=== PATIENT | female | born 1940 | race Caucasian/White ===

== ENCOUNTER 2017-02-09 06:57 | Day surgery (SDC) | payer MEDICARE, BC ==
[2017-02-09] MEDS ORDERED: LIDOCAINE 2% MDV (20MG/ML) 20ML VIAL IV ONE (06:58)
[2017-02-09] MEDS ORDERED: PROPOFOL 10 MG/ML VIAL IV ONE (06:58)
--- NOTE | 2017-02-12 12:21 | Operative Note ---
DATE OF SURGERY: 02/09/2017 REQUESTING PHYSICIAN: David Sneed DO SURGEON: Amara Cross MD POSTOPERATIVE DIAGNOSES: 1. Left-sided colonic diverticulosis. 2. A 2 cm, flat, polypoid lesion in the ascending colon that was removed by snare cautery with hemoclip application x 2. 3. Two 5-6 mm sessile polyps in the rectum that were removed by snare cautery. OPERATION: COLONOSCOPY and exam. REASON FOR PROCEDURE: This is an 86-year-old female with average risk for colorectal cancer who presented for screening colonoscopy. SEDATION: Sedation as per anesthesia. Pulse oximetry was monitored throughout the duration of the procedure to maintain O2 saturation of 90% or greater. Supplemental oxygen was administered via nasal cannula. Cardiac and vital signs were monitored throughout the duration of the procedure and they were stable. PROCEDURE: Description of the procedure of colonoscopy, risks, and alternatives to the procedure including the risk of bleeding and perforation among others were explained to the patient who voiced understanding and agreed to have the procedure done. A physical examination was performed and the patient was found stable for sedation. The patient was then placed in the left lateral position and sedation was initiated. Digital rectal exam was performed and showed small external hemorrhoids with no palpable rectal masses. A lubricated Olympus PCF-180AL colonoscope was then inserted into the rectum under direct visualization and was advanced to the cecum without difficulty. The ileocecal valve and appendiceal orifice were identified and photographed. The colonic mucosa was carefully examined upon insertion of the colonoscope. There were scattered diverticula noted in the sigmoid and descending colon. In the ascending colon was a 2 cm flat polypoid lesion that was noted and was removed by snare cautery. Two hemoclips were used to close the wound. The colonoscope was then withdrawn while carefully examining the colonic mucosal surfaces. No other lesions were noted in the cecum, the rest of the ascending colon, transverse colon, descending colon or sigmoid colon. In the rectum, however, were two 5-6 mm sessile polyps that were noted and were removed by snare cautery. The colonoscope was then withdrawn further into the rectum, and upon retroflexion, there were no other lesions noted. The colonoscope was then withdrawn and the procedure was terminated. The patient tolerated the procedure well without any complications. The patient remained with stable vital signs and was sent to the recovery room. PLAN AND RECOMMENDATIONS: 1. The patient is to be on a low-acid diet for 2 weeks and thereafter to be on a high-fiber diet. 2. She is to avoid any aspirin or any aspirin-containing medications. 3. The patient is to have repeat colonoscopy in 3 or 5 years or never. Thank you for allowing me to participate in the care of this patient. CC: DO GARTH Mcdowell
== END 2017-02-09 09:10 | disposition home or self-care (01) ==
LOC: HOP 06:57
PROVIDERS: ATTEND Internal Medicine Gastroenterology
DX: Z12.11 Encounter for screening for malignant neoplasm of colon (principal); D12.2 Benign neoplasm of ascending colon; K62.1 Rectal polyp; K57.30 Diverticulosis of large intestine without perforation or abscess without bleeding; I10 Essential (primary) hypertension

== ENCOUNTER 2018-03-15 12:13 | Observation (INO) | payer MEDICARE ==
[2018-03-15] MEDS ORDERED: Diph,Pert(Acell),Tet Vac 0.5 ML SYR IM ONE (12:42)
--- NOTE | 2018-03-15 12:45 | Emergency Department Record ---
History of Present Illness - General Chief Complaint: Fall Injury Stated Complaint: FALL Time Seen by Provider: 03/15/18 12:32 Source: Patient, Family Mode of Arrival: EMS Limitations: No limitations - History of Present Illness Initial Comments: The patient is here due to falling about an hour ago at home. She finished taking a shower and then was walking to the bedroom and began to feel dizzy and lightheaded. She then fell forward striking her face on the floor. She then immediately began talking to her spouse who witnessed the event. Since she has had facial pain but denies any WATKINS, CP, SOB, neck pain or visual changes. The patient did have a 3rd BP medicine started about a week ago due to HTN. She did see her PCP yesterday who was pleased with her blood pressure. The patient's spouse states her BP has been running low at times at home though. MD Complaint: Fall Onset/Timin -: Hour(s) Fall From: Standing When Fall Occurred: Just prior to arrival Fall Witnessed: Yes, by family Place Fall Occurred: Home Loss of Consciousness: Yes Prolonged Down Time?: No Symptoms Prior to Fall: Dizziness Location: Head Severity: Mild Severity scale (1-10): 5 - [place] Coma Scale Eye Response: (4) Open spontaneously Motor Response: (6) Obeys commands Verbal Response: (5) Oriented [place] Total: 15 - Related Data Home Medications Medication Instructions Recorded Confirmed Last Taken Alendronate Sodium 70 mg PO 03/15/18 Unknown Amlodipine Besylate 5 mg PO 03/15/18 03/15/18 08:00 Simvastatin [Zocor] 10 mg PO 03/15/18 03/15/18 08:00 Allergies Allergy/AdvReac Type Severity Reaction Status Date / Time No Known Drug Allergies Allergy Verified 03/15/18 12:31 Travel Screening - Travel/Exposure Within Last 30 Days Have you traveled within the last 30 days?: No Review of Systems Constitutional: Denies: Chills, Fever Eyes: Denies: Eye discharge ENT: Denies: Congestion Respiratory: Denies: Dyspnea Cardiovascular: Denies: Arrhythmia, Chest pain Endocrine: Denies: Fatigue Gastrointestinal: Denies: Nausea Genitourinary: Denies: Dysuria Musculoskeletal: Denies: Arthralgia Skin: Denies: Bruising Past Medical History - SOCIAL HISTORY Smoking Status: Former smoker Alcohol Use: None Drug Use: None - RESPIRATORY Hx Respiratory Disorders: No - CARDIOVASCULAR Hx Cardio Disorders: Yes Hx Hypertension: Yes - NEURO Hx Neuro Disorders: No - GI Hx GI Disorders: No Hx Abdominal Pain: Yes (llq a few days ago) - Hx Genitourinary Disorders: No - ENDOCRINE Hx Endocrine Disorders: No - MUSCULOSKELETAL Hx Musculoskeletal Disorders: No - PSYCH Hx Psych Problems: Yes Hx Behavior Problems: Yes (obsessive compulsive disorder) - HEMATOLOGY/ONCOLOGY Hx Hematology/Oncology Disorders: No Family Medical History Any Significant Family History?: Yes Hx Alcohol Use: Brother/Sister Hx Cancer: Brother/Sister Hx Dementia: Mother Hx Heart Disease: Mother Hx HTN: Mother Hx Resp Disorders: Brother/Sister Hx Stroke: Mother Physical Exam - General General Appearance: Alert, Oriented x3, Cooperative, No acute distress - Head Head exam: Atraumatic, Normocephalic, Normal inspection - Eye Eye exam: Normal appearance, PERRL, EOMI - ENT ENT exam: negative: Normal exam Nasal Exam: negative: Normal inspection (There is a very minor laceration to the L nostril. The nasal area is tender and swollen. There is no septal hematoma.) Teeth exam: Normal inspection Throat exam: Normal inspection, Other (The L anterior mandible is mildly tender but with no malloclusion or significant swelling.). negative: Tonsillar erythema, Tonsillar exudate - Neck Neck exam: Normal inspection, Full ROM. negative: Lymphadenopathy, Tenderness - Respiratory Respiratory exam: Normal lung sounds bilaterally. negative: Respiratory distress - Cardiovascular Cardiovascular Exam: Regular rate, Normal rhythm, Normal heart sounds - GI/Abdominal GI/Abdominal exam: Soft, Normal bowel sounds. negative: Tenderness - Extremities Extremities exam: Normal inspection, Full ROM, Normal capillary refill. negative: Tenderness - Neurological Neurological exam: Alert, Normal gait, Oriented X3. negative: Abnormal gait, Altered, Motor sensory deficit - Psychiatric Psychiatric exam: negative: Anxious - Skin Skin exam: negative: Rash Course Vital Signs 03/15/18 12:26 Temperature 97.5 F L Pulse Rate 75 Respiratory 18 Rate Blood Pressure 118/92 Pulse Ox 97 - Reevaluation(s) Reevaluation #1: The patient is doing better at this time and is resting comfortably. She does have a mild WATKINS but denies any new complaints. I did explain to her that due to the issues with her passing out and her nonspecific changes on her EKG the safest plan would be to admit her to the hospital overnight. The patient did agree to the plan. I also did consult with Dr. Sneed her PCP and also Gianna Sommers ([employer]) who did accept her admission. 03/15/18 15:03 Reevaluation #2: The patient did have a 2nd EKG done that was not significantly different from the first. 03/15/18 15:06 Medical Decision Making - Data Complexity MDM Data: Labs Ordered and/or Reviewed, X-Ray Ordered and/or Reviewed, EKG Ordered and/or Reviewed - Lab Data Result diagrams: 03/15/18 11:50 03/15/18 11:50 - EKG Data -: EKG Interpreted by Me EKG: Abnormal EKG (Prolonged QT with abnormal lateral T wave changes. No old EKG for comparison. ) - Radiology Data Radiology results: Report reviewed (Head CT: Neg for acute intracranial abnormalities. Pos nasal bone fx with L max air fluid level with no fx.) Disposition Disposition: Admit Clinical Impression: Syncope Qualifiers: Syncope type: unspecified Qualified Code(s): R55 - Syncope and collapse Disposition: Still a Patient at [facility] Decision to Admit: Admit from ER Decision to Admit Date: 03/15/18 Decision to Admit Time: 15:06 Accepting Physician: Bianca Gayle Discussed w/Accepting Physician: 15:07 Condition: (2) Stable Forms: Patient Portal Access Time of Disposition: 15:07 Quality - Quality Measures Quality Measures: N/A - Blood Pressure Screening View Details: Yes Does Patient Have Any of the Following: Active Dx of HTN Blood Pressure Classification: Hypertensive Reading Systolic Measurement: 118 Diastolic Measurement: 92 Screening for High Blood Pressure: Patient Exclusion, Hx of HTN [[id number]]
[2018-03-15 12:51] LABS: BASO % 0.3 % (0-6); EOS % 2.5 % (0-6); GRAN % 64.4 % (47-80); HEMATOCRIT 51.3 % (35.0-47.0); HEMOGLOBIN 16.9 gm/dl (11.6-16.0); LYMPH % 22.8 % (16-45); MEAN CELL VOLUME 93.6 fl (81-97); MEAN CORPUSCULAR HEMOGLOBIN 30.8 pg (27-33); MEAN CORPUSCULAR HGB CONC 32.9 g/dl (32-36); MEAN PLATELET VOLUME 9.3 fl (7.4-10.4); PLATELET COUNT 318 K/uL (130-400); RED BLOOD COUNT 5.48 M/uL (3.80-5.40); RED CELL DISTRIBUTION WIDTH 13.2 % (11.5-14.5); WHITE BLOOD COUNT W/O DIFF 8.7 K/uL (4.2-12.2)
[2018-03-15 13:10] LABS: BLOOD UREA NITROGEN 14 mg/dL (8-23); CREATININE 0.9 mg/dL (0.5-0.9); EST GLOMERULAR FILTRATION RATE > 60 mL/min; PARTIAL THROMBOPLASTIN TIME 25.9 SECONDS (24.5-39.1); PROTHROMBIN TIME (PATIENT) 10.2 SECONDS (9.5-12.1)
[2018-03-15 13:11] LABS: TOTAL PROTEIN 8.3 g/dL (6.6-8.7)
[2018-03-15 13:13] LABS: GLUCOSE,RANDOM 92 mg/dL (74-109)
[2018-03-15 13:15] LABS: ALB/GLOB RATIO 1.3 (1.1-1.8); ALBUMIN 4.7 g/dL (4.0-5.0); ALKALINE PHOSPHATASE 75 U/L (45-87); ALT/SGPT 13 U/L (<33); AST/SGOT 15 U/L (10.0-35.0); CREATINE PHOSPHOKINASE 65 U/L (26-192)
[2018-03-15 13:18] LABS: CKMB 2.7 ng/mL (<3.77)
[2018-03-15] MEDS ORDERED: ACETAMINOPHEN 325 MG TAB PO ONE (14:02)
--- NOTE | 2018-03-15 14:40 | CT SCAN REPORT ---
EXAM: CT SCAN OF THE BRAIN WITHOUT CONTRAST HISTORY: SYNCOPE AND FALL. LOSS OF CONSCIOUSNESS. ABRASION TO THE NOSE AND CHIN. TECHNIQUE: Standard CT imaging of the brain was performed in the axial plane without contrast. Additional coronal and sagittal reformatted images were also performed. Comparison: None. Encounter: Initial. FINDINGS: There is moderate generalized atrophy. The ventricles and subarachnoid spaces are otherwise normal. An old lacunar infarct is present within the right caudate nucleus. There is no mass, mass effect, intracranial hemorrhage, visible acute infarct, or skull fracture. The orbits are normal in appearance. There are subtle nondepressed nasal bone fractures with overlying soft tissue swelling. An air fluid level is present within the left maxillary sinus with no visible associated fracture. A small mucous retention cyst is present at the floor of the right maxillary sinus. There is minor mucosal thickening within the frontal and ethmoid sinuses. The mastoid air cells are clear. IMPRESSION: 1. NO ACUTE INTRACRANIAL ABNORMALITY. 2. 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 3. MODERATE ATROPHY. 4. NONDEPRESSED NASAL BONE FRACTURE. 5. AIR FLUID LEVEL WITHIN THE LEFT MAXILLARY SINUS. JOB NUMBER: [id number] [facility]
--- NOTE | 2018-03-15 14:46 | CT SCAN REPORT ---
EXAM: CT SCAN OF THE CERVICAL SPINE WITHOUT CONTRAST HISTORY: SYNCOPAL EPISODE AND FALL. LOSS OF CONSCIOUSNESS. HEAD INJURY. ABRASION TO THE NOSE AND CHIN. TECHNIQUE: Standard CT imaging of the cervical spine was performed in the axial plane without contrast. Additional coronal and sagittal reformatted images were also performed. Comparison: None. Encounter: Initial. FINDINGS: There is straightening of the cervical lordosis. 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 There is severe disk space narrowing of the C4 through the T1 levels. There is minor anterolisthesis of C4 on C5 and C7 on T1, both of which appear degenerative in nature secondary to bilateral facet arthropathy. The craniocervical junction is unremarkable. There is no visible acute fracture, subluxation, or prevertebral soft tissue swelling. There is borderline to mild central canal stenosis at the C4 through the C7 levels. There is severe left and moderate right neural foraminal narrowing at the C4-C5 level. Mild to moderate bilateral neural foraminal narrowing is present at the C5-C6 level. Atherosclerotic calcifications are present within the carotid arteries bilaterally. The neck soft tissues are otherwise normal. The lung apices appear clear. IMPRESSION: 1. NO ACUTE CERVICAL SPINE PATHOLOGY. 2. EXTENSIVE MULTILEVEL DEGENERATIVE DISK DISEASE AND FACET ARTHROPATHY. 3. 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 JOB NUMBER: [id number] [facility]
[2018-03-15] MEDS ORDERED: AMOXICILLIN/POTASSIUM CLAV 875MG/125MG TABLET PO ONE (15:03)
[2018-03-15] MEDS ORDERED: 0.9 % SODIUM CHLORIDE 1000ML 1,000 ML IV PRN (15:26)
[2018-03-15] MEDS ORDERED: ACETAMINOPHEN 325 MG TAB PO PRN (15:26)
[2018-03-15] MEDS: AMOXICILLIN/POTASSIUM CLAV 875MG/125MG TABLET PO SCH (21:17)
[2018-03-15] MEDS: CLONIDINE HCL 0.1 MG TABLET PO SCH (21:17)
[2018-03-15] MEDS ORDERED: CLONIDINE HCL 0.1 MG TABLET PO SCH (22:00)
[2018-03-15] MEDS ORDERED: SIMVASTATIN 10MG TABLET PO SCH (22:00)
[2018-03-16] MEDS ORDERED: CLONIDINE HCL 0.1 MG TABLET PO ONE (03:11)
--- NOTE | 2018-03-16 09:15 | History & Physical ---
History of Present Illness - Date of Service Date of Service for History & Physical: 03/18/18 - History of Present Illness Admitting Diagnosis: 1. Acute Syncope History of Present Illness: 78 yo female admitted for witnessed syncope and mild facial trauma r/t to fall forward. Pt was recently placed on HCTZ 12.5mg by PCP, seen in office and reported BPs 100/70s on meds but in office was 130/80s in office (reported by Dr Sneed during consult via phone). Syncope episode was noted 03/15/18, witnessed at home. 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 Had a BM, reported having to push hard, stood quickly and walked into her shared bedroom. Pt reports feeling dizzy and then woke when she hit the carpeted bedroom floor. Was a&ox3 immediately after hitting the ground per pt. Brought to er via EMS. PMH HTN 03/15/18 pt arrived to EMS, facial trauma noted s/p syncope and fall. Was a&ox3 upon arrival, presented with and confirmed that pt fell forward on carpet and was awake and alert immediately. CT head and Neck negative for acute process, nasal bone fracture with air fluid left maxillary sinus. EKG shows prolonged QTc but NS with T wave depressions of unknown age. Pt denied CP, SOB, or JOSE with Dizziness resolving before arrival to ER. BP 118/92, Hr 75, RR 18, 97% RA 97.5F WBC 8.7, Hgb 16.9, Hct 51.3, Plt 318 PT 10.2, INR 1, APTT 25.9 Na 143, K 3.6, Cl 99, COs 30, Anion gap 14, BUN 14, Cr 0.9, GFR >60, glucose 92 , LFTs wnl Trop <0.010 x3, CKMB 2.7, CK 65 Pt given IVF @ 45, tylenol 650mg, and started on Augmentin for nasal fx with sinus involvement. HCTZ d/c'd, tdap given, placed on tele cont. 03/16/18 Pt resting comfortable, pain controlled with tylenol. Bruising noted to face, left worse than right. Pt has normal ROM, able to open and close jaw with no difficulties. Neuro exam normal, lungs CTA, heart NS RRR, no murmur noted. Tele reports NSR with no reported ectopy. Clonidine was decreased from 0.2mg BID to 0.1mg BID and BP was elevated in the early AM. Pt to continue clonidine 0.2mg BID and norvasc 5mg qd. Holding HCTZ 12.5mg until seen by PCP. Pt denies CP, SOB, dizziness, or any sensation of racing or skipping beats. Case consulted with Dr Sneed as pt has neg trop., positive h/o of potential vasovagal stimulation but has not previous ECHO. PCP will see pt 10AM sunday for f/u, req 24hr holter to D/C today. EKG shows no acute process other than prolonger QTc with no previous EKG noted. Pt does wish to go home, POC reviewed with pt and continues to agree to d/c. Pt educated on risk of d/c without inpt ECHO that would not be completed until sunday. Pt wishes to have ECHO outpt and PCP does agree to this POC. . PCP Nedra Travel Screening - Travel/Exposure Within Last 30 Days Have you traveled within the last 30 days?: No - Travel/Exposure Within Last Year Have you traveled outside the [place] in the last year?: No - Additonal Travel Details Have you been exposed to anyone with a communicable illness?: No - Travel Symptoms Symptom Screening: None Review of Systems Constitutional: Denies: Chills, Fever Eyes: Denies: Eye discharge ENT: Denies: Congestion Respiratory: Denies: Dyspnea Cardiovascular: Denies: Arrhythmia, Chest pain Endocrine: Denies: Fatigue Gastrointestinal: Denies: Nausea Genitourinary: Denies: Dysuria Musculoskeletal: Denies: Arthralgia Skin: Denies: Bruising Past Medical History - SOCIAL HISTORY Smoking Status: Former smoker Alcohol Use: None Drug Use: None - RESPIRATORY Hx Respiratory Disorders: No - CARDIOVASCULAR Hx Cardio Disorders: Yes Hx Hypertension: Yes - NEURO Hx Neuro Disorders: No - GI Hx GI Disorders: No Hx Abdominal Pain: Yes (llq a few days ago) - Hx Genitourinary Disorders: No - ENDOCRINE Hx Endocrine Disorders: No - MUSCULOSKELETAL Hx Musculoskeletal Disorders: No - PSYCH Hx Psych Problems: Yes Hx Behavior Problems: Yes (obsessive compulsive disorder) - HEMATOLOGY/ONCOLOGY Hx Hematology/Oncology Disorders: No Family Medical History Any Significant Family History?: Yes Hx Alcohol Use: Brother/Sister Hx Cancer: Brother/Sister Hx Dementia: Mother Hx Heart Disease: Mother Hx HTN: Mother Hx Resp Disorders: Brother/Sister Hx Stroke: Mother H&P Meds/Allergies - Allergies Allergies: Allergies Allergy/AdvReac Type Severity Reaction Status Date / Time No Known Drug Allergies Allergy Verified 03/15/18 12:31 - Home Medications Home Medications Medication Instructions Recorded Confirmed Last Taken Alendronate Sodium 70 mg PO WEEKLY 03/15/18 03/15/18 Unknown Amlodipine Besylate 5 mg PO DAILY 03/15/18 03/15/18 03/15/18 08:00 Simvastatin [Zocor] 10 mg PO QHS 03/15/18 03/15/18 03/15/18 08:00 Previous Rx's Medication Instructions Recorded Acetaminophen [Tylenol 325Mg] 650 mg PO Q6H PRN tablet 03/16/18 Amoxicillin/Potassium Clav 1 each PO BID 9 Days #18 tablet 03/16/18 [Augmentin 875Mg/125Mg] Magnesium 200 mg PO DAILY 7 Days #7 tablet 03/16/18 - Active Medications Active Medications: Current Medications Acetaminophen (Tylenol 325mg) 650 mg PO Q6H PRN PRN Reason: PAIN - MILD(1-4)/FEVER Last Admin: 03/16/18 02:23 Dose: 650 mg Amlodipine Besylate (Norvasc) 5 mg PO DAILY [facility] Amoxicillin/Clavulanate Potassium (Augmentin 875 Tab) 1 each PO BID [facility] Last Admin: 03/15/18 21:17 Dose: 1 each Clonidine HCl (Catapres) 0.1 mg PO BID [facility] Last Admin: 03/15/18 21:17 Dose: 0.1 mg Sodium Chloride () 1,000 mls @ 42 mls/hr IV .[id number] PRN PRN Reason: LARGE VOLUME IV Last Admin: 03/15/18 19:24 Dose: 42 mls/hr Non-Formulary Medication (Alendronate Sodium [Alendronate Sodium]) 70 mg PO WEEKLY [facility] Sertraline HCl (Zoloft) 25 mg PO DAILY [facility] Simvastatin (Zocor) 10 mg PO QHS [facility] Last Admin: 03/15/18 21:17 Dose: 10 mg Physical Exam - Vital Signs Vital Signs: Vital Signs - Last 24 Hrs Temp Pulse Pulse Pulse Resp BP BP 03/16/18 05:00 77 17 140/67 03/16/18 01:00 98.1 F 84 17 196/92 03/15/18 21:26 98.5 F 87 16 175/87 03/15/18 21:00 78 87 16 03/15/18 17:26 98.4 F 78 20 156/78 03/15/18 16:08 80 16 03/15/18 15:26 98.2 F 75 16 166/80 03/15/18 15:02 77 171/93 03/15/18 14:02 70 167/90 03/15/18 12:26 97.5 F L 75 18 118/92 Pulse Ox 03/16/18 05:00 93 L 03/16/18 01:00 94 L 03/15/18 21:26 97 03/15/18 21:00 03/15/18 17:26 03/15/18 16:08 03/15/18 15:26 97 03/15/18 15:02 03/15/18 14:02 03/15/18 12:26 97 - General General Appearance: Alert, Oriented x3, Cooperative, No acute distress Limitations: No limitations - Head Head exam: Normocephalic. negative: Atraumatic, Normal inspection Head exam detail: Contusion, Andino's sign, General tenderness, Hematoma, [place] eyes - Eye Eye exam: Normal appearance, PERRL, EOMI - ENT ENT exam: negative: Normal exam Nasal Exam: Dried blood, Sinus tenderness. negative: Normal inspection (There is a very minor laceration to the L nostril. The nasal area is tender and swollen. There is no septal hematoma.) Mouth exam: Normal external inspection, Tongue normal Teeth exam: Other (prostetics) Throat exam: Normal inspection, Other (The L anterior mandible is mildly tender but with no malloclusion or significant swelling.). negative: Tonsillar erythema, Tonsillar exudate - Neck Neck exam: Normal inspection, Full ROM. negative: Lymphadenopathy, Tenderness - Respiratory Respiratory exam: Normal lung sounds bilaterally. negative: Respiratory distress - Cardiovascular Cardiovascular Exam: Regular rate, Normal rhythm, Normal heart sounds Peripheral Pulses: 2+: Radial (R), Radial (L), Dorsalis Pedis (R), Dorsalis Pedis (L) - GI/Abdominal GI/Abdominal exam: Soft, Normal bowel sounds. negative: Tenderness - Rectal Rectal exam: Deferred - exam: Deferred - Extremities Extremities exam: Normal inspection, Full ROM, Normal capillary refill. negative: Pedal edema, Tenderness - Back Back exam: Reports: Normal inspection - Neurological Neurological exam: Alert, CN II-XII intact, Normal gait, Oriented X3. negative : Abnormal gait, Altered, Motor sensory deficit - Psychiatric Psychiatric exam: Normal affect, Normal mood. negative: Anxious - Skin Skin exam: negative: Rash Results - Labs Result Diagrams: 03/15/18 11:50 03/15/18 11:50 Labs Last 24 Hours: Laboratory Results - last 24 hr 03/15/18 03/15/18 03/15/18 11:50 11:50 11:50 WBC 8.7 RBC 5.48 H Hgb 16.9 H Hct 51.3 H MCV 93.6 MCH 30.8 MCHC 32.9 RDW 13.2 Plt Count 318 MPV 9.3 Gran % 64.4 Lymphocytes % 22.8 Monocytes % 10.0 H Eosinophils % 2.5 Basophils % 0.3 PT 10.2 INR 1.0 APTT 25.9 Sodium 143 Potassium 3.6 Chloride 99 Carbon Dioxide 30.0 H Anion Gap 14.0 BUN 14 Creatinine 0.9 Estimated GFR > 60 Random Glucose 92 Calcium 10.4 H Total Bilirubin 0.50 AST 15 ALT 13 Alkaline Phosphatase 75 Creatine Kinase 65 CK-MB (CK-2) 2.7 Troponin T < 0.010 Total Protein 8.3 Albumin 4.7 Globulin 3.6 Albumin/Globulin Ratio 1.3 03/15/18 03/16/18 19:14 03:00 WBC RBC Hgb Hct MCV MCH MCHC RDW Plt Count MPV Gran % Lymphocytes % Monocytes % Eosinophils % Basophils % PT INR APTT Sodium Potassium Chloride Carbon Dioxide Anion Gap BUN Creatinine Estimated GFR Random Glucose Calcium Total Bilirubin AST ALT Alkaline Phosphatase Creatine Kinase CK-MB (CK-2) Troponin T < 0.010 < 0.010 Total Protein Albumin Globulin Albumin/Globulin Ratio - Imaging and Cardiology CT scan - head Status: Report reviewed VTE H&P Assessment - Risk for VTE Risk for VTE: Yes Risk Level: Moderate Risk Assessment Date: 03/16/18 Risk Assessment Time: :19 VTE Orders Placed or Will Be Placed: No VTE Reason for No Prophylaxis: Complication of Medical Care (recent fall) Plan - Detailed Diagnosis and Plan (1) Syncope Status: Acute Qualifiers: Syncope type: unspecified Qualified Code(s): R55 - Syncope and collapse Base Code: R55 - SYNCOPE AND COLLAPSE Comment: 03/16/18 -pt denies dizziness, tele NSR no ectopy reported -trop x3 neg -BP elevated during admission, holding HCTZ but continue clonidine -EKG ER shows prolonged QTc 513, repeat this AM shows 532, mag serum 1.5 -2gm Mag IVPB given, repeat EKG QTc 460, d/c home with mag supplements (2) DVT prophylaxis Status: Acute Base Code: [id number] - Comment: 03/16/18 -no lovenox r/t recent fall, facial trauma (3) Full code status Status: Acute Base Code: Z78.9 - OTHER SPECIFIED HEALTH STATUS Comment: full code
[2018-03-16] MEDS ORDERED: AMLODIPINE BESYLATE 5MG TAB PO SCH (10:00)
[2018-03-16] MEDS ORDERED: SERTRALINE HCL 50 MG TABLET PO SCH (10:00)
[2018-03-16] MEDS: AMOXICILLIN/POTASSIUM CLAV 875MG/125MG TABLET PO SCH (10:26)
[2018-03-16] MEDS: CLONIDINE HCL 0.1 MG TABLET PO SCH (10:27)
[2018-03-16] MEDS ORDERED: MAGNESIUM SULFATE 16 MEQ in 0.9 % SODIUM CHLORIDE 100ML 100 ML IV ONE (11:53)
--- NOTE | 2018-03-16 14:40 | Physician Progress Note ---
Subjective - Date Date of Physician Progress Note: 03/16/18 Objective - Vital Signs Vital Signs: Vital Signs - Last 24 Hrs Temp Pulse Pulse Resp BP Pulse Ox 03/16/18 13:00 98.3 F 74 16 147/80 95 03/16/18 09:00 97.9 F 73 18 167/84 93 L 03/16/18 05:00 77 17 140/67 93 L 03/16/18 01:00 98.1 F 84 17 196/92 94 L 03/15/18 21:26 98.5 F 87 16 175/87 97 03/15/18 21:00 78 87 16 03/15/18 17:26 98.4 F 78 20 156/78 03/15/18 16:08 80 16 03/15/18 15:26 98.2 F 75 16 166/80 97 03/15/18 15:02 77 171/93 - General General Appearance: Alert, Oriented x3, Cooperative, No acute distress Limitations: No limitations - Head Head exam: Normocephalic. negative: Atraumatic, Normal inspection Head exam detail: Contusion, Andino's sign, General tenderness, Hematoma, [place] eyes - Eye Eye exam: Normal appearance, PERRL, EOMI - ENT ENT exam: negative: Normal exam Nasal Exam: Dried blood, Sinus tenderness. negative: Normal inspection (There is a very minor laceration to the L nostril. The nasal area is tender and swollen. There is no septal hematoma.) Mouth exam: Normal external inspection, Tongue normal Teeth exam: Other (prostetics) Throat exam: Normal inspection, Other (The L anterior mandible is mildly tender but with no malloclusion or significant swelling.). negative: Tonsillar erythema, Tonsillar exudate - Neck Neck exam: Normal inspection, Full ROM. negative: Lymphadenopathy, Tenderness - Respiratory Respiratory exam: Normal lung sounds bilaterally. negative: Respiratory distress - Cardiovascular Cardiovascular Exam: Regular rate, Normal rhythm, Normal heart sounds Peripheral Pulses: 2+: Radial (R), Radial (L), Dorsalis Pedis (R), Dorsalis Pedis (L) - GI/Abdominal GI/Abdominal exam: Soft, Normal bowel sounds. negative: Tenderness - Rectal Rectal exam: Deferred - exam: Deferred - Extremities Extremities exam: Normal inspection, Full ROM, Normal capillary refill. negative: Pedal edema, Tenderness - Back Back exam: Reports: Normal inspection - Neurological Neurological exam: Alert, CN II-XII intact, Normal gait, Oriented X3. negative : Abnormal gait, Altered, Motor sensory deficit - Psychiatric Psychiatric exam: Normal affect, Normal mood. negative: Anxious - Skin Skin exam: negative: Rash Assessment and Plan - Assessment and Plan (1) Syncope Current Visit: Yes Status: Acute Qualifiers: Syncope type: unspecified Qualified Code(s): R55 - Syncope and collapse Base Code: R55 - SYNCOPE AND COLLAPSE Comment: 03/16/18 -pt denies dizziness, tele NSR no ectopy reported -trop x3 neg -BP elevated during admission, holding HCTZ but continue clonidine -EKG ER shows prolonged QTc 513, repeat this AM shows 532, mag serum pending (2) DVT prophylaxis Current Visit: Yes Status: Acute Base Code: [id number] - (3) Full code status Current Visit: Yes Status: Acute Base Code: Z78.9 - OTHER SPECIFIED HEALTH STATUS Results - Labs Result Diagrams: 03/15/18 11:50 03/15/18 11:50 Labs Last 24 Hours: Laboratory Results - last 24 hr 03/15/18 03/16/18 03/16/18 19:14 03:00 03:00 Magnesium 1.5 L Troponin T < 0.010 < 0.010 DVT/PE Assessment - Risk for VTE Risk for VTE: No Risk Level: Moderate Risk Assessment Date: 03/16/18 Risk Assessment Time: 11:19 VTE Reason for No Prophylaxis: Complication of Medical Care (recent fall) - Active Medicaitons Current Medications: Current Medications Acetaminophen (Tylenol 325mg) 650 mg PO Q6H PRN PRN Reason: PAIN - MILD(1-4)/FEVER Last Admin: 03/16/18 02:23 Dose: 650 mg Amlodipine Besylate (Norvasc) 5 mg PO DAILY [facility] Last Admin: 03/16/18 10:26 Dose: 5 mg Amoxicillin/Clavulanate Potassium (Augmentin 875 Tab) 1 each PO BID [facility] Last Admin: 03/16/18 10:26 Dose: 1 each Clonidine HCl (Catapres) 0.1 mg PO BID [facility] Last Admin: 03/16/18 10:27 Dose: 0.1 mg Sodium Chloride () 1,000 mls @ 42 mls/hr IV .[id number] PRN PRN Reason: LARGE VOLUME IV Last Admin: 03/15/18 19:24 Dose: 42 mls/hr Non-Formulary Medication (Alendronate Sodium [Alendronate Sodium]) 70 mg PO WEEKLY [facility] Sertraline HCl (Zoloft) 25 mg PO DAILY [facility] Last Admin: 03/16/18 10:27 Dose: 25 mg Simvastatin (Zocor) 10 mg PO QHS [facility] Last Admin: 03/15/18 21:17 Dose: 10 mg AMI Plan - Labs Result Diagrams: 03/15/18 11:50 03/15/18 11:50
--- NOTE | 2018-03-16 16:04 | Discharge Summary ---
Providers Discharge Summary Date: 03/16/18 Date of admission: 03/15/18 15:24 Expected Date of Discharge: 03/16/18 Attending physician: YUVAL QUINTEROS Primary care physician: Dr Sneed Physical Exam - Vital Signs Vital Signs: Vital Signs - Last 24 Hrs Temp Pulse Pulse Resp BP Pulse Ox 03/16/18 13:00 98.3 F 74 16 147/80 95 03/16/18 09:00 97.9 F 73 18 167/84 93 L 03/16/18 05:00 77 17 140/67 93 L 03/16/18 01:00 98.1 F 84 17 196/92 94 L 03/15/18 21:26 98.5 F 87 16 175/87 97 03/15/18 21:00 78 87 16 03/15/18 17:26 98.4 F 78 20 156/78 03/15/18 16:08 80 16 - General General Appearance: Alert, Oriented x3, Cooperative, No acute distress Limitations: No limitations - Head Head exam: Normocephalic. negative: Atraumatic, Normal inspection Head exam detail: Contusion, Andino's sign, General tenderness, Hematoma, [place] eyes - Eye Eye exam: Normal appearance, PERRL, EOMI - ENT ENT exam: negative: Normal exam Nasal Exam: Dried blood, Sinus tenderness. negative: Normal inspection (There is a very minor laceration to the L nostril. The nasal area is tender and swollen. There is no septal hematoma.) Mouth exam: Normal external inspection, Tongue normal Teeth exam: Other (prostetics) Throat exam: Normal inspection, Other (The L anterior mandible is mildly tender but with no malloclusion or significant swelling.). negative: Tonsillar erythema, Tonsillar exudate - Neck Neck exam: Normal inspection, Full ROM. negative: Lymphadenopathy, Tenderness - Respiratory Respiratory exam: Normal lung sounds bilaterally. negative: Respiratory distress - Cardiovascular Cardiovascular Exam: Regular rate, Normal rhythm, Normal heart sounds Peripheral Pulses: 2+: Radial (R), Radial (L), Dorsalis Pedis (R), Dorsalis Pedis (L) - GI/Abdominal GI/Abdominal exam: Soft, Normal bowel sounds. negative: Tenderness - Rectal Rectal exam: Deferred - exam: Deferred - Extremities Extremities exam: Normal inspection, Full ROM, Normal capillary refill. negative: Pedal edema, Tenderness - Back Back exam: Reports: Normal inspection - Neurological Neurological exam: Alert, CN II-XII intact, Normal gait, Oriented X3. negative : Abnormal gait, Altered, Motor sensory deficit - Psychiatric Psychiatric exam: Normal affect, Normal mood. negative: Anxious - Skin Skin exam: negative: Rash Hospitalization - Hospitalization Admission Diagnosis: 1. Acute Syncope - Problem List/Discharge Diagnosis (1) Syncope Current Visit: Yes Status: Acute Discharge Diagnosis: Syncope type: unspecified Qualified Code(s): R55 - Syncope and collapse Base Code: R55 - SYNCOPE AND COLLAPSE Comment: 03/16/18 -pt denies dizziness, tele NSR no ectopy reported -trop x3 neg -BP elevated during admission, holding HCTZ but continue clonidine -EKG ER shows prolonged QTc 513, repeat this AM shows 532, mag serum 1.5 -2gm Mag IVPB given, repeat EKG QTc 460, d/c home with mag supplements (2) DVT prophylaxis Current Visit: Yes Status: Acute Base Code: [id number] - (3) Full code status Current Visit: Yes Status: Acute Base Code: Z78.9 - OTHER SPECIFIED HEALTH STATUS - Disposition Syncope most likely related to vasovagal response. Pt was having BM, stood quickly and had syncope that was witnessed by . CT head and neck neg other than new nasal fracture. Trop neg x3 Prolonged QTc on EKG, replaced inpt and resolved to normal. COntinue antibiotics and mag supplement, f/u PCP Dr Sneed sunday morning. Dr Sneed made aware of POC and agrees. - Hospitalization Course Disposition: Home, Self-Care Hospital Course: 78 yo female admitted for witnessed syncope and mild facial trauma r/t to fall forward. Pt was recently placed on HCTZ 12.5mg by PCP, seen in office and reported BPs 100/70s on meds but in office was 130/80s in office (reported by Dr Sneed during consult via phone). Syncope episode was noted 03/15/18, witnessed at home. Pt reports taking a shower, drying her hair with hair and makeup designer and felt fine. Had a BM, reported having to push hard, stood quickly and walked into her shared bedroom. Pt reports feeling dizzy and then woke when she hit the carpeted bedroom floor. Was a&ox3 immediately after hitting the ground per pt. Brought to er via EMS. PMH HTN 03/15/18 pt arrived to EMS, facial trauma noted s/p syncope and fall. Was a&ox3 upon arrival, presented with and confirmed that pt fell forward on carpet and was awake and alert immediately. CT head and Neck negative for acute process, nasal bone fracture with air fluid left maxillary sinus. EKG shows prolonged QTc but NS with T wave depressions of unknown age. Pt denied CP, SOB, or JOSE with Dizziness resolving before arrival to ER. BP 118/92, Hr 75, RR 18, 97% RA 97.5F WBC 8.7, Hgb 16.9, Hct 51.3, Plt 318 PT 10.2, INR 1, APTT 25.9 Na 143, K 3.6, Cl 99, COs 30, Anion gap 14, BUN 14, Cr 0.9, GFR >60, glucose 92 , LFTs wnl Trop <0.010 x3, CKMB 2.7, CK 65 Pt given IVF @ 45, tylenol 650mg, and started on Augmentin for nasal fx with sinus involvement. HCTZ d/c'd, tdap given, placed on tele cont. 03/16/18 Pt resting comfortable, pain controlled with tylenol. Bruising noted to face, left worse than right. Pt has normal ROM, able to open and close jaw with no difficulties. Neuro exam normal, lungs CTA, heart NS RRR, no murmur noted. Tele reports NSR with no reported ectopy. Clonidine was decreased from 0.2mg BID to 0.1mg BID and BP was elevated in the early AM. Pt to continue clonidine 0.2mg BID and norvasc 5mg qd. Holding HCTZ 12.5mg until seen by PCP. Pt denies CP, SOB, dizziness, or any sensation of racing or skipping beats. Case consulted with Dr Sneed as pt has neg trop., positive h/o of potential vasovagal stimulation but has not previous ECHO. PCP will see pt 10AM sunday for f/u, req 24hr holter to D/C today. EKG shows no acute process other than prolonger QTc with no previous EKG noted. Pt does wish to go home, POC reviewed with pt and continues to agree to d/c. Pt educated on risk of d/c without inpt ECHO that would not be completed until sunday. Pt wishes to have ECHO outpt and PCP does agree to this POC. . MARILY Sneed Procedures: Imaging and X-Rays 03/15/18 12:37 CERVICAL SPINE WO CONTRAST [CT] Stat HEAD WO CONTRAST [CT] Stat 03/15/18 15:26 ARTERIAL DOPPLER CAROTID JAIRO [US] Stat Cardiology Procedures 03/15/18 12:37 Garment Steamer NOW EKG NOW 03/15/18 14:03 EKG NOW 03/15/18 15:26 Garment Steamer .Continuous EKG QDX2@0600 03/16/18 15:20 EKG NOW Abnormal Labs: Abnormal Lab Results 03/15/18 03/15/18 03/16/18 Range/Units 11:50 11:50 03:00 RBC 5.48 H (3.80-5.40) M/uL Hgb 16.9 H (11.6-16.0) gm/dl Hct 51.3 H (35.0-47.0) % Monocytes % 10.0 H (0-9) % Carbon Dioxide 30.0 H (22-29) mmol/L Calcium 10.4 H (8.8-10.2) mg/dL Magnesium 1.5 L (1.6-2.4) mg/dL Condition at Discharge: (2) Stable Discharge Diagnosis: Syncope Discharge Medications - Discharge Medications Prescriptions: Amoxicillin/Potassium Clav [Augmentin 875Mg/125Mg] 1 each PO BID 9 Days #18 tablet Magnesium 200 mg PO DAILY 7 Days #7 tablet Home Medications: Ambulatory Orders Clonidine HCl 0.2 mg PO BID 11/05/15 [Last Taken 03/15/18 08:00] Sertraline HCl 25 mg PO DAILY 11/05/15 [Last Taken 03/15/18 08:00] Alendronate Sodium 70 mg PO WEEKLY 03/15/18 [Last Taken Unknown] Amlodipine Besylate 5 mg PO DAILY 03/15/18 [Last Taken 03/15/18 08:00] Simvastatin [Zocor] 10 mg PO QHS 03/15/18 [Last Taken 03/15/18 08:00] Acetaminophen [Tylenol 325Mg] 650 mg PO Q6H PRN tablet 03/16/18 [Last Taken Unknown] Amoxicillin/Potassium Clav [Augmentin 875Mg/125Mg] 1 each PO BID 9 Days #18 tablet 03/16/18 [Last Taken Unknown] Magnesium 200 mg PO DAILY 7 Days #7 tablet 03/16/18 [Last Taken Unknown] Discharge Plan - Discharge Instructions Activity at Discharge: Increase Activity as Tolerated Diet at Discharge: Regular Diet Additional Instructions: Your magnesium was low, this was contributing to the changes on your EKG. When it was replaced, this improved to normal. Continue to take the magnesium supplements, 200mg daily. You are going home on a holter monitor, this will record 24 hours of your heart rate and rhythm. Continue to monitor your blood pressure. Continue your antibiotics for [address] Sneed is expecting you in the office sunday morning, 10AM. Go to ER for any return of dizziness or if you have Chest pain, difficulty breathing, shortness of breath. Quality Measures - Quality Measures Quality Measures: Advance Directives, Documentation of Current Medications in Medical Record, Elder Maltreatment Screen and Follow-Up Plan, Screening for High Blood Pressure and F/U Documented - Current Medications Quality Measure: Measure #130: Documentation of Current Medications Documentation of Current Medications: <Current Medications Documented/Reviewed> [G3651] - Blood Pressure Screening Quality Measure: Screening for High Blood Pressure and Follow-Up Documented Does Patient Have Any of the Following: Active Dx of HTN Blood Pressure Classification: Hypertensive Reading Systolic Measurement: 118 Diastolic Measurement: 92 Screening for High Blood Pressure: Patient Exclusion, Hx of HTN [G9744] - Advance Directives Quality Measure: Measure #47: Care Plan Advance Directives Established: No Advance Directives Information Provided To Patient: Yes Advance Directives on File: No Living Will: No Power of Manager Floor: No Advance Care Planning: <Care Plan/Decision Maker Documented; Discussed & Documented> [1123F] - Elder Abuse Suspicion Index Screening: Elder Abuse Suspicion Index Screening Rely on people for bathing, dressing, shopping, banking, etc: No Prevented from getting food, clothes, medication, etc: No Made to feel shamed or threatened by someone: No Forced to sign papers or use money against will: No Feel afraid, touched in ways not wanted or hurt physically: No Poor eye contact, withdrawn, malnourished, cuts or bruises: No Screening Result: Negative result EASI Reference Information: Didier WOODS, Aayush C, Joel D, Cheyenne Perry.Development and validation of a tool to assist physicians identification of elder abuse: The Elder Abuse Suspicion Index (EASI ). Journal of Elder Abuse and Neglect, 2008; 20 (3): 276-300. - Elder Maltreatment Screen Quality Measures: Elder Maltreatment Screen and Follow-Up Plan Elder Maltreatment Screen: <Negative, No Follow-Up Plan Required> [G8734]
--- NOTE | 2018-03-16 20:15 | US CAROTID DOPPLER REPORT ---
EXAM: BILATERAL CAROTID DOPPLER ULTRASOUND HISTORY: SYNCOPE AND FALL. TECHNIQUE: Bilateral carotid Doppler examination was performed in the standard fashion. Harding-scale, color Doppler, and spectral Doppler evaluation was performed. All internal carotid artery percent stenoses are calculated using the distal internal carotid artery as the denominator (NASCET criteria). COMPARISON: None. FINDINGS: Harding-scale and color Doppler images demonstrates mild areas of heterogeneous calcified and noncalcified plaques within the common carotid arteries and carotid bulbs bilaterally. No high-grade stenosis is identified. The internal, external, and vertebral arteries appear grossly normal. 3 Vessel Right Peak Systolic/ End Diastolic Velocities Left Peak Systolic/ End Diastolic Velocities Proximal Common Carotid Artery 75.7 cm/s /13.1 cm/s 89.7 cm/s /20.4 cm/s Mid Common Carotid Artery 71.3 cm/s /15.3 cm/s 54.6 cm/s /10.1 cm/s Distal Common Carotid Artery 63.6 cm/s /17.5 cm/s 58.1 cm/s /16.2 cm/s Proximal Internal Carotid Artery 46.2 cm/s /19.1 cm/s 45.2 cm/s /12.8 cm/s Mid Internal Carotid Artery 55.8 cm/s /16.5 cm/s 65.9 cm/s /21.9 cm/s Distal Internal Carotid Artery 66.9 cm/s /16.4 cm/s 73.7 cm/s /24.5 cm/s Carotid Bulb 55.9 cm/s /17.5 cm/s 59.4 cm/s /8.9 cm/s Proximal External Carotid Artery 74.1 cm/s /12.8 cm/s 89.2 cm/s /15.4 cm/s d d d Right Flow Left Flow Vertebral Artery antegrade antegrade Vertebral Artery: Right Peak Systolic: 35.7 cm/s Left Peak Systolic: 51.9 cm/s ICA:CCA Ratio: Right: 1.1 Left 1.3 IMPRESSION: THERE ARE MILD AREAS OF ATHEROSCLEROTIC PLAQUE WITHIN THE COMMON CAROTID ARTERIES AND CAROTID BULBS BILATERALLY WITH LESS THAN 50% DIAMETER STENOSIS. OTHERWISE UNREMARKABLE BILATERAL CAROTID DOPPLER EXAMINATION. JOB NUMBER: [id number] MTDD
--- NOTE | 2018-03-19 21:20 | Holter Monitor Report ---
DATE OF TEST: 03/16/2018 INTERPRETING PHYSICIAN: RADHA BEDOYA M.D. PRIMARY CARE PROVIDER: DR. JONATHON QUINTEROS INDICATIONS: SYNCOPE. Ms. Laureano underwent a 24-hour Holter monitoring starting at 4:20 p.m. on 2018. The patient's average heart rate was 71 beats per minute with a minimum heart rate of 51 beats per minute occurring at 9:24 a.m. and a maximum heart rate of 135 beats per minute occurring at 5:11 p.m. No pauses of 2 seconds or longer were identified. Heart rate greater than 120 beats per minute was noted only 1% of the time. Twelve ventricular ectopics, which represented less than 1% of the total beat count were noted. 418 supraventricular ectopics were seen. The patient reported one symptom of dizziness, which did not correlate with any significant arrhythmia. IMPRESSION: 1. THIS 24-HOUR HOLTER MONITORING REVEALS THE PATIENT TO BE IN SINUS RHYTHM WITH OCCASIONAL SUPRAVENTRICULAR AND VERY OCCASIONAL VENTRICULAR ECTOPICS. 2. THE PATIENT'S SYMPTOMS OF DIZZINESS COULD NOT BE CORRELATED WITH ANY SIGNIFICANT ARRHYTHMIA. cc: Dr. Jonathon Quinteros JOB NUMBER: [id number] MTDD
[2018-03-22] MEDS ORDERED: Non-Formulary MISC (Alendronate Sodium [Alendronate Sodium] 70 MG) PO SCH (10:00)
== END 2018-03-16 16:46 | disposition home or self-care (01) ==
LOC: ER 12:13 → MEDSURG 15:24
PROVIDERS: ADMIT Internal Medicine; ATTEND Internal Medicine
DX: R55 Syncope and collapse (principal); I10 Essential (primary) hypertension; W19.XXXA Unspecified fall, initial encounter; F42.9 Obsessive-compulsive disorder, unspecified; Z87.891 Personal history of nicotine dependence
CPT/HCPCS: 82550; 83735; 85025; 85730; 85610; 82553; 80053; 84484 ×2; 93880; 72125; 70450; 93005 ×2; 93010; 93225; 93226; G0378 ×2; J3490; 90715; 96365; 96366; 99220; 99285